=== PATIENT | male | born 1990 | race American Indian/Alaskan Native ===

== ENCOUNTER 2018-08-31 09:02 | Emergency (ER) | payer SELFPAY ==
[2018-08-31] MEDS ORDERED: PEPCID IV ONE (09:45)
[2018-08-31] MEDS ORDERED: NACL 0.9% 1000 ML 2,000 ML IV ONE (09:45)
[2018-08-31] MEDS ORDERED: ATIVAN IV ONE (09:45)
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
[2018-08-31 10:27] LABS: Hematocrit 48.1 % (35.5-45.6); Hemoglobin 16.3 gm/dl (11.8-15.2); Mean Corpuscular HGB Conc 34 % (32-34); Mean Corpuscular Hemoglobin 30 pg (28-32); Mean Corpuscular Volume 87 fl (84-94); Red Blood Count 5.52 M/mm3 (3.65-5.03); Red Cell Distribution Width 14.2 % (13.2-15.2)
[2018-08-31 10:30] LABS: Platelet Count 305 K/mm3 (140-440)
--- NOTE | 2018-08-31 10:39 | XRay Report ---
CHEST 2 VIEWS INDICATION / CLINICAL INFORMATION: cp. COMPARISON: None available. FINDINGS: SUPPORT DEVICES: None. HEART / MEDIASTINUM: No significant abnormality. LUNGS / PLEURA: No significant pulmonary or pleural abnormality. No pneumothorax. ADDITIONAL FINDINGS: No significant additional findings. IMPRESSION: 1. No significant abnormality. Signer Name: Cora Mcrae MD Signed: 08/31/2018 10:34 AM Workstation Name: [id number]
[2018-08-31 10:47] LABS: INR 1.2 (0.87-1.13)
[2018-08-31 10:48] LABS: BUN/Creatinine Ratio 10; Blood Urea Nitrogen 8 mg/dL (9-20); Calcium 9.9 mg/dL (8.4-10.2); Hemolysis Index 17
[2018-08-31 13:17] VITALS: BP 116/76
== END 2018-08-31 13:16 | disposition home or self-care (01) ==
LOC: ED 09:02
DX: R07.89 Other chest pain (principal); F17.200 Nicotine dependence, unspecified, uncomplicated; F12.10 Cannabis abuse, uncomplicated
CPT/HCPCS: 36415; 71046; 80048; 82550; 83735; 84484; 85027; 85610; 93005; 93010; 96361; 96374; 96375; 99285; J2060; J7030

== ENCOUNTER 2020-07-24 22:51 | Emergency (ER) | payer SELFPAY ==
[2020-07-24 23:12] VITALS: BP 95/60
[2020-07-24] MEDS ORDERED: SODIUM CHLORIDE 0.9% 1000 ML 1,000 ML IV ONE ×2 (23:34)
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
[2020-07-25 00:39] LABS: Basophils % (Auto) 0.4 % (0.0-1.8); Eosinophils % (Auto) 0.3 % (0.0-4.3); Hematocrit 51.9 % (35.5-45.6); Hemoglobin 16.9 gm/dl (11.8-15.2); Lymphocytes # (Auto) 1.9 K/mm3 (1.2-5.4); Mean Corpuscular HGB Conc 33 % (32-34); Mean Corpuscular Volume 89 fl (84-94); Monocytes # (Auto) 1.1 K/mm3 (0.0-0.8); Monocytes % (Auto) 9.2 % (0.0-7.3); Red Blood Count 5.86 M/mm3 (3.65-5.03); Red Cell Distribution Width 16.4 % (13.2-15.2)
[2020-07-25 00:43] LABS: Platelet Count 294 K/mm3 (140-440)
[2020-07-25 01:03] LABS: Alanine Aminotransferase 18 units/L (7-56); BUN/Creatinine Ratio 3; Blood Urea Nitrogen 5 mg/dL (9-20); Calcium 10.1 mg/dL (8.4-10.2); Hemolysis Index 43
== END 2020-07-25 00:47 | disposition left against medical advice (07) ==
LOC: ED 22:51
DX: R10.9 Unspecified abdominal pain (principal); G89.29 Other chronic pain; G40.909 Epilepsy, unspecified, not intractable, without status epilepticus; V87.7XXA Person injured in collision between other specified motor vehicles (traffic), initial encounter; Y93.89 Activity, other specified; Y92.488 Other paved roadways as the place of occurrence of the external cause; Y99.8 Other external cause status
CPT/HCPCS: 36415; 80053; 83690; 85025; 99283